=== PATIENT | male | born 1975 | race Caucasian/White ===

== ENCOUNTER 2017-01-13 22:41 | Emergency (ER) | payer MEDICAID ==
[2017-01-13 23:25] VITALS: RESP 20; TEMP 98.2
[2017-01-13] MEDS ORDERED: Oxycodone/Acetaminophen 5/325 mg Tab PO STA (23:51)
--- NOTE | 2017-01-13 23:52 | C.PDOC ---
History Of Present Illness 41 year old male presents to the ED with complaints of pain to the left upper mouth region. Currently not taking anything for the pain. Denies any other symptoms. Time Seen by Provider: 01/13/17 23:41 Chief Complaint (Nursing): Dental Pain History Per: Patient History/Exam Limitations: no limitations Onset/Duration Of Symptoms: Hrs Current Symptoms Are (Timing): Still Present Quality: Positive for: "Pain" Recent travel outside of the [place]: No Past Medical History Reviewed: Historical Data, Nursing Documentation, Vital Signs Vital Signs: Last Vital Signs Temp 98.2 F 01/13/17 23:20 Pulse 88 01/14/17 01:02 Resp 20 01/14/17 01:02 BP 128/76 01/14/17 01:02 Pulse Ox 100 01/14/17 05:20 - Medical History PMH: No Chronic Diseases Surgical History: No Surg Hx Family History: States: Unknown Family Hx - Social History Hx Tobacco Use: Yes Hx Alcohol Use: No Hx Substance Use: Yes Review Of Systems Constitutional: Negative for: Fever ENT: Positive for: Mouth Pain. Negative for: Mouth Swelling Physical Exam - Physical Exam Appears: Non-toxic, No Acute Distress Skin: Normal Color, Warm, Dry Head: Atraumatic, Normacephalic Nose: Normal, No Flaring Oral Mucosa: Moist Tongue: Normal Appearing, No Swelling Lips: Normal Appearing, No Swelling Teeth: Edentulous (Mostly), Tender To Palpation (left upper molar), Other (Few scattered teeth. Very poor repair.) Gingiva: Swelling (Mild above left upper molar, no fluctuance) Throat: Normal Neck: Normal, Supple Neurological/Psych: Oriented x3, Normal Speech, Normal Cognition ED Course And Treatment O2 Sat by Pulse Oximetry: 100 (Room air) Pulse Ox Interpretation: Normal Medical Decision Making Medical Decision Making: Plan: Amoxil PO, Motrin and Oxycodone/Acetaminophen Started antibiotics and instructed to follow up with his dentist. Disposition Counseled Patient/Family Regarding: Diagnosis, Need For Followup, Rx Given - Disposition Disposition: HOME/ ROUTINE Disposition Time: 00:21 Condition: STABLE Additional Instructions: Follow up with your dentist first thing on Monday. Take antibiotics as prescribed. Cold compresses to left side of face to help with pain several times a day. Take ibuprofen as prescribed for pain (with food) and Percocet one pill every 6 hours for severe pain. Prescriptions: Amoxicillin [Amoxil 500 mg Cap] 500 mg PO TID #21 cap Ibuprofen [Motrin] 600 mg PO TID #30 tab oxyCODONE/Acetaminophen [Percocet 5/325 mg Tab] 1 ea PO Q6 #6 tab Instructions: Toothache (ED) Forms: [facility] (Mosotho), General Discharge Instructions - Clinical Impression Clinical Impression: Dental caries, Toothache - Scribe Statement The provider has reviewed the documentation as recorded by the Scribe James Bowman All medical record entries made by the Scribe were at my direction and personally dictated by me. I have reviewed the chart and agree that the record accurately reflects my personal performance of the history, physical exam, medical decision making, and the department course for this patient. I have also personally directed, reviewed, and agree with the discharge instructions and disposition.
[2017-01-14 01:04] VITALS: BP 128/76; PULSE 88
[2017-01-14 05:04] VITALS: O2SAT 100
== END 2017-01-14 01:02 | disposition home or self-care (01) ==
LOC: C.ER 22:41
DX: K02.9 Dental caries, unspecified (principal); K08.89 Other specified disorders of teeth and supporting structures

== ENCOUNTER 2018-03-07 08:10 | Emergency (ER) | payer MEDICAID ==
[2018-03-07 08:19] VITALS: BP 119/70; PULSE 76; RESP 20; TEMP 98.2; O2SAT 97
--- NOTE | 2018-03-07 09:08 | C.PDOC ---
History Of Present Illness 42 y/o male presents to the ER complaining of right ear pain which began in the morning today. Patient states that he feels "something crawling" in his ear. Patient thinks that there might be an insect in his ear. Denies having fever, chills,and drainage from ear. Time Seen by Provider: 03/07/18 08:55 Chief Complaint (Nursing): ENT Problem History Per: Patient History/Exam Limitations: None Onset/Duration Of Symptoms: Hrs Current Symptoms Are (Timing): Still Present Severity: Moderate Past Medical History Reviewed: Historical Data, Nursing Documentation, Vital Signs Vital Signs: Last Vital Signs Temp 98.2 F 03/07/18 08:12 Pulse 76 03/07/18 08:12 Resp 20 03/07/18 08:12 BP 119/70 03/07/18 08:12 Pulse Ox 97 03/07/18 08:12 - Medical History PMH: No Chronic Diseases Surgical History: No Surg Hx Family History: States: No Known Family Hx - Social History Hx Tobacco Use: Yes Hx Alcohol Use: Yes Hx Substance Use: Yes Review Of Systems Except As Marked, All Systems Reviewed And Found Negative. Constitutional: Negative for: Fever, Chills ENT: Positive for: Ear Pain (right ear pain). Negative for: Ear Discharge Physical Exam - Physical Exam Appears: Non-toxic, No Acute Distress, Other (awake ,alert) Skin: Normal Color, Warm, Dry Head: Atraumatic, Normacephalic Eye(s): bilateral: Normal Inspection, PERRL, EOMI Ear(s): Left: Normal, Right: TM Obscured By Wax, Other (no foreign body visualized) Neurological/Psych: Oriented x3, Normal Speech ED Course And Treatment O2 Sat by Pulse Oximetry: 97 (RA) Pulse Ox Interpretation: Normal Medical Decision Making Medical Decision Making: Right ear was flushed, cerumen and insect were removed. Patient tolerated well. After the procedure, TM and external canal appears intact. TM does appear very irritated and erythematous. Patient has been treated with Motrin PO and discharged with prescription for Cortisporin. Disposition Counseled Patient/Family Regarding: Diagnosis, Need For Followup - Disposition Referrals: [facility] [Outside] [facility] [Outside] Disposition: HOME/ ROUTINE Disposition Time: 09:00 Condition: GOOD Prescriptions: Neomycin/Polymyxin/Hydrocort [Cortisporin Otic Soln] 4 drop DE QID #1 bottle Instructions: Removing Objects Stuck in the Ear Forms: [employer] (Arabic) Print Language: DUTCH - POA Present On Arrival: None - Clinical Impression Clinical Impression: Foreign body in right ear, initial encounter - Scribe Statement The provider has reviewed the documentation as recorded by the Scribe Jeremy Vincent Provider Attestation: All medical record entries made by the Scribe were at my direction and personally dictated by me. I have reviewed the chart and agree that the record accurately reflects my personal performance of the history, physical exam, medical decision making, and the department course for this patient. I have also personally directed, reviewed, and agree with the discharge instructions and disposition.
== END 2018-03-07 09:26 | disposition home or self-care (01) ==
LOC: C.ER 08:10
DX: T16.1XXA Foreign body in right ear, initial encounter (principal); X58.XXXA Exposure to other specified factors, initial encounter; Y92.9 Unspecified place or not applicable